=== PATIENT | male | born 1950 | race Caucasian/White ===

== ENCOUNTER 2018-08-14 23:25 | Inpatient (IN) | payer MEDICARE, BC | END 2018-08-21 16:15 | LOC: ER 23:25 → PCU 3S 08-20 17:55 → ED HOLD 08-15 02:42 → CICU 2S 08-15 03:30 | DX: J96.01 Acute respiratory failure with hypoxia (principal); J18.1 Lobar pneumonia, unspecified organism; J90 Pleural effusion, not elsewhere classified; I50.9 Heart failure, unspecified ==